=== PATIENT | male | born 1995 | race Caucasian/White ===

== ENCOUNTER 2022-10-10 09:10 | Emergency (ER) | payer OTHER, SELFPAY ==
[2022-10-10 09:11] VITALS: BP 164/96; PULSE 73; RESP 16; TEMP 36.6; O2SAT 98; BMI 33.5
--- NOTE | 2022-10-10 09:21 | EXP.UTC ---
Discharge Plan Referrals Follow up/Referrals: Provider,Referral, [Primary Care Provider] - See instructions Clinical Impressions Clinical Impression: Pain, eye, right Discharge ED Provider: Augustus Hartmann [facility] General Stated complaint: eye bluging Time Seen by Provider: 10/10/22 09:21 History of Present Illness Provider Complaint: He states that for the past 3 days he has had bulging of his right eye , He thinks that he may have a piece of metal in it. He denies any known injury. Related Data Allergies Allergy/AdvReac Type Severity Reaction Status Date / Time Penicillins Allergy Verified 10/10/22 09:31 [facility] Disclaimer: The information contained in this section may have been updated after the patient was seen, as this information can be updated by other users. Social History Smoking Status: Never smoker alcohol intake: never current occupational status: employed Travel in the last 8 weeks: None ROS Obtained: Yes All systems reviewed & no additional complaints except as documented Constitutional Constitutional: Denies chills and Denies fever(s) Eyes Eyes: Reports as per HPI ENT Ears, Nose, Mouth, and Throat: Denies dizziness, Denies otalgia and Denies sore throat Cardiovascular Cardiovascular: Denies chest pain Respiratory Respiratory: Denies shortness of breath, Denies chest congestion, Denies cough, Denies stridor and Denies wheezing Gastrointestinal Gastrointestingal: Denies nausea or vomiting Musculoskeletal Musculoskeletal: Reports system reviewed and no additional complaints, except as documented and Denies arthralgias Integumentary/Breasts Skin/Breast: Denies rash Neurologic Neurologic: Denies dizziness and Denies paresthesias Allergic/Immunologic Allergic/Immunologic: Denies wheezing Physical Exam General General appearance: alert and in no apparent distress Head Head exam: atraumatic, normocephalic and normal inspection Eye Eye exam: Present normal appearance, PERRL and EOMI ENT ENT exam: Present normal exam, normal oropharynx, mucous membranes moist, TM's normal bilaterally and normal external ear exam Neck Neck exam: Present normal inspection, full ROM and trachea midline; Absent meningismus or lymphadenopathy Chest Chest inspection: Present normal inspection and symmetric chest wall rise; Absent tenderness Respiratory Respiratory exam: Present normal lung sounds bilaterally; Absent respiratory distress Cardiovascular Cardiovascular exam: Present regular rate and normal rhythm; Absent JVD Abdominal Exam Abdominal exam: Present soft and normal bowel sounds; Absent distention, tenderness or guarding Extremities Exam Extremities exam: Present normal inspection, full ROM and normal capillary refill; Absent calf tenderness Back Exam Back exam: Present normal inspection; Absent tenderness Neurological Exam Neurological exam: Present alert and oriented X3 Psychiatric Psychiatric exam: Present normal affect and normal mood Skin Skin exam: Present warm, dry, intact and normal color Lymphatic Lymphatic Findings: no adenopathy Medical Decision Making Medical Records Medical records reviewed: No I reviewed the patient's medical records. Eduar Inquiry Pt receiving controlled substance: No Medical Decision Narrative: He was transferred to the ER due to his eye complaints with no clear etiology.
[2022-10-10 10:11] VITALS: BP 153/85; PULSE 89; RESP 16; TEMP 36.6; O2SAT 97; BMI 33.5
--- NOTE | 2022-10-10 10:53 | CT_ITS ---
PROCEDURE INFORMATION: Exam: CT Head With Contrast Exam date and time: 10/10/2022 11:28 AM Age: 27 years old Clinical indication: Other: Swelling behind right eye and eye bulging; Additional info: R exopthalmos/ no neurologic deficits/ no SOTO TECHNIQUE: Imaging protocol: Computed tomography of the head with intravenous contrast. Radiation optimization: All CT scans at this facility use at least one of these dose optimization techniques: automated exposure control; mA and/or kV adjustment per patient size (includes targeted exams where dose is matched to clinical indication); or iterative reconstruction. Contrast material: ISOVUE; Contrast volume: 100 ml; Contrast route: IV; REPORTING DATA: Count of CT and Cardiac NM exams in prior 12 months: This patient has received 0 known CTs and 0 known cardiac nuclear medicine studies in the 12 months prior to the current study. COMPARISON: No relevant prior studies available. FINDINGS: Brain: Unremarkable white matter. No mass effect. No abnormal enhancing lesions. Cerebral ventricles: Unremarkable. No ventriculomegaly. Bones/joints: Unremarkable. No acute fracture. Paranasal sinuses: Mild patchy mucosal thickening is noted within ethmoid air cells, frontal and sphenoid sinuses and maxillary antra. Mastoid air cells: Visualized mastoid air cells are well aerated. Soft tissues: Unremarkable. IMPRESSION: Pansinusitis. Otherwise normal contrast-enhanced CT of the head.
--- NOTE | 2022-10-10 10:54 | HMH.EDGENADL ---
Discharge Plan Disposition Patient Disposition: Home, Self-Care Condition: Good Chief Complaint: Eye Problems Referrals Follow up/Referrals: Provider,Referral, MD [Primary Care Provider] - See instructions Activity Restrictions/Add. Instructions Additional Instructions/Restrictions: At this time is felt you are safe to be discharged home. If new or worsening symptoms please do not hesitate to return the emergency department. Please follow-up with an eye doctor within 5 days. Clinical Impressions Clinical Impression: Change in vision Discharge ED Provider: Israel Long General Adult HPI General Chief complaint: Eye Problems Stated complaint: eye bluging Time Seen by Provider: 10/10/22 09:21 Mode of Arrival: Ambulatory Source of Information: Patient Limitations: No Limitations Description of Symptoms (Recalled from ER Triage Doc. by RN): Pt reports began having pressure in R eye on , states woke up normal on . Pt denies any injury, blurry vision or drainage from eye. 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 History of Present Illness HPI narrative: Patient is a 27-year-old male with no pertinent past medical history who presents emergency department for evaluation of right eye pressure and bulging. History is obtained by patient at bedside. Since he has had progressive bulging of his right eye which has become noticeable to him. Patient wears corrective vision with glasses at baseline. Denies headache, pain with extraocular movements, gait difficulties, speech difficulties, any other acute complaint at this time. He does work with metal sharps and is concerned there may be a foreign body in his eye although he does not have pain and denies any acute incident that he can remember. Related Data Allergies Allergy/AdvReac Type Severity Reaction Status Date / Time Penicillins Allergy Verified 10/10/22 09:31 [facility] Disclaimer: The information contained in this section may have been updated after the patient was seen, as this information can be updated by other users. Social History (Updated 10/10/22 @ 10:06 by Augustus Hartmann APRN) Smoking Status: Never smoker alcohol intake: never current occupational status: employed Travel in the last 8 weeks: None ROS Obtained: Yes Systems reviewed as appropriate & no additional complaints except as documented Physical Exam General General appearance: alert and in no apparent distress Head Head exam: atraumatic and normocephalic Eye Eye exam: Present normal appearance (Slight right-sided exophthalmos), PERRL and EOMI; Absent conjunctival redness ENT ENT exam: Present mucous membranes moist Neck Neck exam: Present normal inspection Chest Chest inspection: Present normal inspection and symmetric chest wall rise Respiratory Respiratory exam: Present normal lung sounds bilaterally; Absent respiratory distress Cardiovascular Cardiovascular exam: Present regular rate and normal rhythm Abdominal Exam Abdominal exam: Present soft; Absent tenderness Extremities Exam Extremities exam: Present normal inspection Neurological Exam Neurological exam: Present alert, oriented X3 and CN II-XII intact; Absent motor sensory deficit Psychiatric Psychiatric exam: Present normal affect Skin Skin exam: Present warm and dry Medical Decision Making Eduar Inquiry Pt receiving controlled substance: No Vital Signs: 10/10/22 09:11 10/10/22 10:11 Temperature 97.9 F 97.9 F Temperature Source Oral Oral Pulse Rate [Radial] 73 89 Respiratory Rate 16 16 Blood Pressure [Right Arm] 164/96 H 153/85 H Blood Pressure Mean [Right Arm] 118 107 Blood Pressure Source [Right Arm] Automatic Cuff Automatic Cuff Blood Pressure Position [Right Arm] Sitting Sitting 02 Sat by Pulse Oximetry 98 97 Oxygen Delivery Method Room Air Room Air Lab Data Lab Results 10/10/22 11:15:
[2022-10-10 11:28] LABS: Basophils % 0.5 % (0.1-2.0); Eosinophils # 0.4 K/mm3 (0.0-0.4); Eosinophils % 4.2 % (0.1-12.0); Hematocrit 48.6 % (42.0-52.0); Hemoglobin 15.7 g/dL (14.1-18.0); Lymphocytes # 1.7 K/mm3 (0.7-4.5); Mean Corpuscular HGB Conc 32.3 g/dL (31.8-35.4); Mean Corpuscular Hemoglobin 27.3 pg (27.0-31.2); Mean Corpuscular Volume 84.5 fl (80-94); Mean Platelet Volume 9.1 fl (7.4-10.4); Monocytes # 0.6 K/mm3 (0.1-1.0); Monocytes % 6.5 % (1.7-9.3); Neutrophils % 68.9 % (37.0-80.0); Platelet Count 273 K/mm3 (142-424); Red Blood Count 5.75 M/mm3 (4.60-6.20); Red Cell Distribution Width 13.4 % (11.5-17.5); White Blood Count 8.7 K/mm3 (4.8-10.8)
[2022-10-10 11:29] LABS: Chloride 104 mmol/L (98-107)
[2022-10-10 11:30] LABS: Potassium 4.1 mmoL/L (3.5-5.1); Sodium 143 mmol/L (136-145)
--- NOTE | 2022-10-10 11:31 | PC.NURSE ---
Patient back from CT
--- NOTE | 2022-10-10 11:31 | PC.NURSE ---
pt return from Ct
[2022-10-10 11:32] LABS: Alanine Aminotransferase 65 U/L (12-78); Aspartate Amino Transferase 49 U/L (17-59); Blood Urea Nitrogen 12 mg/dl (9-20); Creatinine Clearance Estimated 220 mL/min (50-200); Estimated Glomerular Filt Rate 116 ml/min (>60); GFR (African American) 140 ML/MIN (>60)
[2022-10-10 11:33] LABS: Albumin Level 4.9 g/dl (3.5-5.0); Albumin/Globulin Ratio 1.4 (1.1-1.8); Alkaline Phosphatase 72 U/L (38-126); Anion Gap 15.1 mEq/L (5-15); Bilirubin,Total 0.6 mg/dl (0.2-1.3); Calcium 10.1 mg/dl (8.4-10.2); Carbon Dioxide 28 mmol/L (22.0-30.0); Globulin 3.5 g/dL (1.3-3.2); Glucose 103 mg/dl (74-100); Total Protein,Serum 8.4 g/dl (6.3-8.2)
[2022-10-10 11:38] LABS: C-Reactive Protein 2.9 mg/L (0-4)
[2022-10-10 12:02] LABS: Erythrocyte Sedimentation Rate 7 mm/hr (0-15)
--- NOTE | 2022-10-10 12:26 | PC.NURSE ---
Rounded on patient call galo within reach. Nothing needed at this time
[2022-10-10 13:08] VITALS: BP 153/85; PULSE 89; RESP 16; TEMP 36.6; O2SAT 97
[2022-10-10 13:09] VITALS: BP 121/79; PULSE 77; RESP 18; TEMP 36.6; O2SAT 97
== END 2022-10-10 13:09 | disposition home or self-care (01) ==
LOC: UTC 09:19 → ER 10:06
PROVIDERS: Emergency Provider Emergency Medicine
DX: H57.11 Ocular pain, right eye (principal); H53.8 Other visual disturbances
CPT/HCPCS: 70460; 80053; 85025; 85651; 86140; 96360; 99285; Q9967